=== PATIENT | female | born 1950 | race African-American/Black ===

== ENCOUNTER 2021-11-24 17:32 | Emergency (ER) | payer OTHER ==
[~2021-11-24] VITALS: Ht 165.1 cm; Wt 81.7 kg
[2021-11-24 17:32] VITALS: BP 172/86
[~2021-11-24 17:32] MED LIST: ADVIL MIGRAINE200 MG PO; HCTZ PO; LISINOPRIL2.5 MG PO; NORCO 5-325 TA1 EACH PO
== END 2021-11-24 23:37 | disposition home or self-care (01) ==
LOC: ER 17:32
DX: S40.011A Contusion of right shoulder, initial encounter (principal); S70.01XA Contusion of right hip, initial encounter; S80.01XA Contusion of right knee, initial encounter; S60.211A Contusion of right wrist, initial encounter; I10 Essential (primary) hypertension; M19.90 Unspecified osteoarthritis, unspecified site; Z79.899 Other long term (current) drug therapy; Z88.5 Allergy status to narcotic agent; W00.2XXA Other fall from one level to another due to ice and snow, initial encounter; Y93.89 Activity, other specified; Y92.89 Other specified places as the place of occurrence of the external cause; Y99.8 Other external cause status